=== PATIENT | female | born 1945 | race Caucasian/White ===

== ENCOUNTER 2017-11-14 06:00 | Outpatient (CLI) | payer OTHER ==
[~2017-11-14] VITALS: Ht 152.4 cm; Wt 72.6 kg
[2017-11-14] MEDS ORDERED: ALTACE10 MG PO (12:52)
[2017-11-14] MEDS ORDERED: LASIX20 MG PO (12:52)
[2017-11-14] MEDS ORDERED: LEVO-T25 MCG PO (12:53)
[2017-11-14] MEDS ORDERED: MAGNESIUM500 MG PO (12:53)
[2017-11-14] MEDS ORDERED: LANTUS SOL100 UNIT/1 (12:53)
[2017-11-14] MEDS ORDERED: ETODOLAC400 MG PO (12:54)
[2017-11-14] MEDS ORDERED: GABAPENTIN800 MG PO (12:54)
[2017-11-14] MEDS ORDERED: FORTAMET1000 MG PO (12:54)
[2017-11-14] MEDS ORDERED: METOPROLOL SUCC50 MG PO (12:55)
[2017-11-14] MEDS ORDERED: ZOCOR20 MG PO (12:55)
[2017-11-14] MEDS ORDERED: AMLODIPINE BESYL5 MG PO (12:55)
[2017-11-14] MEDS ORDERED: PANTOPRAZOLE SO40 MG PO (12:56)
[2017-11-14] MEDS ORDERED: FOLIC ACID1 MG PO (12:56)
[2017-11-14] MEDS ORDERED: [UNRECOGNIZED DRUG - OTHER] PO (12:58)
== END 2017-11-14 06:05 | disposition home or self-care (01) ==
LOC: LAB 06:00 → EDSTATUS 11-21 11:45 → SURH 11-21 11:45
DX: R19.4 Change in bowel habit (principal); D12.2 Benign neoplasm of ascending colon; Z01.810 Encounter for preprocedural cardiovascular examination

== ENCOUNTER 2018-07-14 12:30 | Inpatient (IN) | payer OTHER ==
[~2018-07-14] VITALS: Ht 152.4 cm; Wt 73.9 kg
[~2018-07-14 12:30] MED LIST: ALTACE10 MG PO; AMLODIPINE BESYL5 MG PO; ETODOLAC400 MG PO; FOLIC ACID1 MG PO; FORTAMET1000 MG PO; GABAPENTIN800 MG PO; LANTUS SOL100 UNIT/1; LASIX20 MG PO; LEVO-T25 MCG PO; MAGNESIUM500 MG PO; METOPROLOL SUCC50 MG PO; PANTOPRAZOLE SO40 MG PO; ZOCOR20 MG PO; [UNRECOGNIZED DRUG - OTHER] PO
[2018-07-14] MEDS ORDERED: TOPROL XL50 M1 PO (14:06)
[2018-07-24] MEDS ORDERED: ULTRACET PO (16:39)
[2018-07-24] MEDS ORDERED: PROTONIX40 MG PO (16:40)
[2018-07-24] MEDS ORDERED: INTESTINEX680 M1 PO (16:40)
[2018-07-24] MEDS ORDERED: DICLOFENAC POTA50 MG PO (16:40)
[2018-07-25] MEDS ORDERED: NORVASC5 MG (21:46)
[2018-07-25] MEDS ORDERED: PROTONIX40 M1 (21:48)
== END 2018-07-24 17:10 | disposition home or self-care (01) | DRG 331 ==
LOC: SURH 07-21 07:15 → O/R 07-21 07:15 → SURG 07-21 12:30 → SURH 07-21 16:39
PROVIDERS: Surgery
PROC: 07TC4ZZ Resection of Pelvis Lymphatic, Percutaneous Endoscopic Approach (ICD-10-PCS; 2018-07-21)
PROC: 0DTF4ZZ Resection of Right Large Intestine, Percutaneous Endoscopic Approach (ICD-10-PCS; principal; 2018-07-21 16:15)
DX: D12.2 Benign neoplasm of ascending colon (principal); D12.3 Benign neoplasm of transverse colon

== ENCOUNTER 2018-07-25 21:14 | Emergency (ER) | payer OTHER ==
[~2018-07-25] VITALS: Ht 152.4 cm; Wt 72.6 kg
[~2018-07-25 21:14] MED LIST changes: +DICLOFENAC POTA50 MG PO; +INTESTINEX680 M1 PO; +PROTONIX40 MG PO; +TOPROL XL50 M1 PO; +ULTRACET PO
[2018-07-25] MEDS ORDERED: NORVASC5 MG (21:46)
[2018-07-25] MEDS ORDERED: PROTONIX40 M1 (21:48)
== END 2018-07-26 00:41 | disposition left against medical advice (07) ==
LOC: ER 21:14
DX: R00.1 Bradycardia, unspecified (principal); R42 Dizziness and giddiness; R53.1 Weakness